=== PATIENT | female | born 1965 | race Caucasian/White ===

== ENCOUNTER 2016-07-01 06:27 | Emergency (ER) | payer OTHER ==
--- NOTE | 2016-07-01 07:39 | C.PDOC ---
History Of Present Illness 51 y/o female presents to the ED with complains of left flank pain radiating to groin since 0100 today with associated nausea and 2 episodes of vomiting. Pt previously diagnosed couple months ago with kidney stones and states symptoms are similar. Pt did not follow up outpatient. Denies fever, chills, abdominal pain, dysuria or any other complaints. Time Seen by Provider: 07/01/16 07:21 Chief Complaint (Nursing): Abdominal Pain History Per: Patient History/Exam Limitations: no limitations Onset/Duration Of Symptoms: Hrs Current Symptoms Are (Timing): Still Present Severity: Moderate Radiation Of Pain To:: Other (groin) Quality Of Discomfort: "Pain" Associated Symptoms: Nausea, Vomiting. denies: Fever, Urinary Symptoms Exacerbating Factors: None Alleviating Factors: None Abnormal Vaginal Bleeding: No Past Medical History Reviewed: Historical Data, Nursing Documentation, Vital Signs Vital Signs: Last Vital Signs Temp 97.6 F 07/01/16 11:06 Pulse 56 L 07/01/16 11:06 Resp 18 07/01/16 11:06 BP 114/71 07/01/16 11:06 Pulse Ox 99 07/01/16 11:06 - Medical History PMH: HTN, Hypercholesterolemia Surgical History: Family History: States: Unknown Family Hx - Social History Hx Tobacco Use: No Hx Alcohol Use: No Hx Substance Use: No - Immunization History Hx Tetanus Toxoid Vaccination: No Hx Influenza Vaccination: No Hx Pneumococcal Vaccination: No Review Of Systems Except As Marked, All Systems Reviewed And Found Negative. Constitutional: Negative for: Fever Gastrointestinal: Positive for: Nausea, Vomiting. Negative for: Abdominal Pain , Diarrhea Genitourinary: Negative for: Dysuria Musculoskeletal: Positive for: Other (left flank pain) Physical Exam - Physical Exam Appears: Non-toxic, In Acute Distress (uncomfortable) Skin: Warm, Dry, No Rash Head: Atraumatic, Normacephalic Neck: Normal, Normal ROM, Supple Chest: Symmetrical Cardiovascular: Rhythm Regular, No Murmur Respiratory: Normal Breath Sounds, No Rales, No Rhonchi, No Wheezing Gastrointestinal/Abdominal: Normal Exam, Soft, No Tenderness Back: Normal Inspection, No CVA Tenderness Extremity: Normal ROM Extremity: Bilateral: Atraumatic Neurological/Psych: Oriented x3, Normal Speech ED Course And Treatment - Laboratory Results Result Diagrams: 07/01/16 08:03 07/01/16 08:03 O2 Sat by Pulse Oximetry: 100 (room air) Pulse Ox Interpretation: Normal - CT Scan/US CT abdomen Other Rad Studies (CT/US): Read By Radiologist, Radiology Report Reviewed CT/US Interpretation: Accession No. : [id number]. Patient Name / ID : MAXIMUS CASTILLO / [id number]. Exam Date : 07/01/2016 08:54:28 ( Approved ). Study Comment : Sex / Age : F / 51Y. Creator : Ben White MD. Dictator : Ben White MD. Bods Developer : Projection Engineer : Ben White MD. Approver2 : Report Date : 07/01/2016 09:31:12. My Comment : . PROCEDURE: CT Abdomen and Pelvis without intravenous contrast. HISTORY: left flank pain. COMPARISON: 04/25/2016. TECHNIQUE: Without contrast.. Contrast Dose: 0. Radiation dose: Total exam DLP = 616.79 mGy-cm. This CT exam was performed using one or more of the following dose reduction techniques: Automated exposure control, adjustment of the mA and/or kV according to patient size, and/ or use of iterative reconstruction technique. FINDINGS: LOWER THORAX: Mild dependent atelectasis in both lower lobes. LIVER: Normal size, contour and attenuation. Multiple low-density masses in right and left hepatic lobe, largest 4.6 cm, possibly cysts. This should be confirmed with ultrasound examination. GALLBLADDER AND BILE DUCTS: Unremarkable. PANCREAS: Unremarkable. No gross lesion or ductal dilatation. SPLEEN: Unremarkable. ADRENALS: Unremarkable. No mass. KIDNEYS AND URETERS: Left hydroureteronephrosis with 4 mm obstructing calculus now identified at left ureterovesical junction. Previously, this calculus was identified in the proximal left ureter. No other renal calculus. No right hydronephrosis. Right upper pole rounded low-attenuation mass, 1.3 cm, measuring -5 Hounsfield units consistent with cyst. No other renal mass. VASCULATURE: Unremarkable. No aortic aneurysm. BOWEL: Mild diverticulosis of descending and sigmoid colon without evidence diverticulitis. No other abnormal bowel loops. No bowel obstruction. APPENDIX: Unremarkable. Normal appendix. PERITONEUM: Unremarkable. No free fluid. No free air. LYMPH NODES: Several mildly enlarged nonspecific left paraaortic lymph nodes, largest 1.7 cm. These are unchanged from prior examination of 04/25/2016. They demonstrate fatty hilum and are of uncertain significance. BLADDER: Unremarkable. REPRODUCTIVE: Normal uterus. BONES: No acute fracture. OTHER FINDINGS: None. IMPRESSION: Obstructing 4 mm left UVJ calculus with mild left hydroureteronephrosis. Several mildly enlarged nonspecific left periaortic lymph nodes, unchanged from 04/25/2016 with fatty hilar architecture. Uncertain significance. Diverticulosis of descending and sigmoid colon without evidence of diverticulitis. Multiple low -density hepatic lesions, possibly cysts. This should be evaluated further with ultrasound examination. Right upper pole cortical mass, likely cyst, 1.3 cm. No other significant abnormality. Progress Note: Patient was tx with IVF, Dilaudid, Zofran, Flomax po. Patient was d/c home with Clinic/Urologist follow up. Medical Decision Making Medical Decision Making: Plan: CT abdomen, labs, UA, IV fluids, zofran, dilaudid Disposition - Disposition Referrals: [facility] [Outside] [facility] [Outside] Disposition: HOME/ ROUTINE Disposition Time: 10:24 Condition: STABLE Additional Instructions: Follow up in Clinic within 1-2 days. Return to ED if feel worse. Prescriptions: Tamsulosin [Flomax] 0.4 mg PO DAILY #10 cap oxyCODONE/Acetaminophen [Percocet 5/325 mg Tab] 1 tab PO QID PRN #20 tab PRN Reason: Pain Ondansetron [Zofran Odt] 1 - 2 tab PO .Q4-6H PRN #20 odt PRN Reason: Nausea/Vomiting Instructions: Renal Colic (ED), How to Strain Your Urine (ED) Print Language: JAPANESE - Clinical Impression Clinical Impression: Renal colic - PA / LOADER / Resident Statement MD/DO has reviewed & agrees with the documentation as recorded. - Scribe Statement The provider has reviewed the documentation as recorded by the Waylon Harrison All medical record entries made by the Scribe were at my direction and personally dictated by me. I have reviewed the chart and agree that the record accurately reflects my personal performance of the history, physical exam, medical decision making, and the department course for this patient. I have also personally directed, reviewed, and agree with the discharge instructions and disposition.
[2016-07-01] MEDS ORDERED: HYDROmorphone 1 mg/ml ISec IVP STA (07:41)
[2016-07-01] MEDS ORDERED: Sodium Chloride 0.9% 1,000 ML IV STA (07:41)
[2016-07-01 08:10] LABS: BASO % 0.2 % (0.0-2.0); EOS # 0.1 K/uL (0.0-0.7); HEMATOCRIT 42.9 % (34.0-47.0); LYMPH # 1.7 K/uL (1.0-4.3); LYMPH % 15.2 % (20.0-40.0); MEAN CELL VOLUME 79.2 fL (81.0-99.0); MEAN CORPUSCULAR HEMOGLOBIN 25.5 pg (27.0-31.0); MEAN CORPUSCULAR HGB CONC 32.3 g/dL (33.0-37.0); MEAN PLATELET VOLUME 8.9 fL (7.2-11.7); MONO # 0.5 K/uL (0.0-0.8); MONO % 4.8 % (0.0-10.0); RED CELL DISTRIBUTION WIDTH 15.9 % (11.5-14.5); WHITE BLOOD COUNT 11.2 K/uL (4.8-10.8)
[2016-07-01] MEDS ORDERED: HYDROmorphone 1 mg/ml ISec ONE (08:21)
[2016-07-01] MEDS ORDERED: Sodium Chloride 0.9% 1,000 ML ONE (08:22)
[2016-07-01 08:24] LABS: CHLORIDE 100 mmol/L (98-107); RBC URINE 1 /hpf (0-3); SODIUM 142 mmol/L (132-148); URINE BILIRUBIN NEGATIVE (NEGATIVE); URINE BLOOD NEGATIVE (NEGATIVE); URINE COLOR Straw (YELLOW); URINE GLUCOSE (UA) NORMAL (Normal); URINE KETONE NEGATIVE (NEGATIVE); URINE LEUKOCYTE ESTERASE NEG Leu/uL (Negative); URINE PROTEIN NEGATIVE (NEGATIVE); URINE UROBILINOGEN NORMAL mg/dL (0.2-1.0); WBC URINE 1 /hpf (0-5)
[2016-07-01 08:25] LABS: POTASSIUM 3.8 mmol/L (3.6-5.2)
[2016-07-01 08:27] LABS: ALB/GLOB RATIO 1.3 (1.0-2.1); ALKALINE PHOSPHATASE 80 U/L (38-126); ALT/SGPT 30 U/L (9-52); AST/SGOT 44 U/L (14-36); BILIRUBIN,TOTAL 0.9 mg/dL (0.2-1.3); BLOOD UREA NITROGEN 14 mg/dL (7-17); CARBON DIOXIDE 25 mmol/L (22-30); GFR AFRICAN-AMERICAN > 60; GLUCOSE,RANDOM 114 mg/dL (65-105); TOTAL PROTEIN 8.9 g/dL (6.3-8.3)
[2016-07-01 08:28] LABS: CALCIUM 9.4 mg/dl (8.6-10.4)
--- NOTE | 2016-07-01 09:32 | CT ---
PROCEDURE: CT Abdomen and Pelvis without intravenous contrast HISTORY: left flank pain COMPARISON: 04/25/2016 TECHNIQUE: Without contrast.. Contrast Dose: 0 Radiation dose: Total exam DLP = 616.79 mGy-cm. This CT exam was performed using one or more of the following dose reduction techniques: Automated exposure control, adjustment of the mA and/or kV according to patient size, and/or use of iterative reconstruction technique. FINDINGS: LOWER THORAX: Mild dependent atelectasis in both lower lobes. LIVER: Normal size, contour and attenuation. Multiple low-density masses in right and left hepatic lobe, largest 4.6 cm, possibly cysts. This should be confirmed with ultrasound examination. GALLBLADDER AND BILE DUCTS: Unremarkable. PANCREAS: Unremarkable. No gross lesion or ductal dilatation. SPLEEN: Unremarkable. ADRENALS: Unremarkable. No mass. KIDNEYS AND URETERS: Left hydroureteronephrosis with 4 mm obstructing calculus now identified at left ureterovesical junction. Previously, this calculus was identified in the proximal left ureter. No other renal calculus. No right hydronephrosis. Right upper pole rounded low-attenuation mass, 1.3 cm, measuring -5 Hounsfield units consistent with cyst. No other renal mass. VASCULATURE: Unremarkable. No aortic aneurysm. BOWEL: Mild diverticulosis of descending and sigmoid colon without evidence diverticulitis. No other abnormal bowel loops. No bowel obstruction. APPENDIX: Unremarkable. Normal appendix. PERITONEUM: Unremarkable. No free fluid. No free air. LYMPH NODES: Several mildly enlarged nonspecific left paraaortic lymph nodes, largest 1.7 cm. These are unchanged from prior examination of 04/25/2016. They demonstrate fatty hilum and are of uncertain significance. BLADDER: Unremarkable. REPRODUCTIVE: Normal uterus BONES: No acute fracture. OTHER FINDINGS: None. IMPRESSION: Obstructing 4 mm left UVJ calculus with mild left hydroureteronephrosis. Several mildly enlarged nonspecific left periaortic lymph nodes, unchanged from 04/25/2016 with fatty hilar architecture. Uncertain significance. Diverticulosis of descending and sigmoid colon without evidence of diverticulitis. Multiple low-density hepatic lesions, possibly cysts. This should be evaluated further with ultrasound examination. Right upper pole cortical mass, likely cyst, 1.3 cm. No other significant abnormality.
[2016-07-01 11:06] VITALS: BP 114/71; PULSE 56; RESP 18; TEMP 97.6
[2016-07-01 14:17] VITALS: O2SAT 100
== END 2016-07-01 11:20 | disposition home or self-care (01) ==
LOC: C.ER 06:27
DX: N13.2 Hydronephrosis with renal and ureteral calculous obstruction (principal)
CPT/HCPCS: 74176; 80053; 81001; 83690; 84703; 85025; 96361; 96374; 96375; 99284; J1170; J2405; J7040

== ENCOUNTER 2017-01-07 19:13 | Emergency (ER) | payer OTHER ==
[2017-01-07 19:36] VITALS: BP 159/88; PULSE 67; RESP 18; TEMP 97.4; O2SAT 99
[2017-01-07] MEDS ORDERED: Lidocaine 2% Inj (20ml) INFIL ONE (20:07)
[2017-01-07] MEDS ORDERED: Tmp-Smz 800 mg-160 mg DS Tab PO STA (20:07)
[2017-01-07] MEDS ORDERED: Lidocaine 2% Inj (20ml) ONE (20:22)
[2017-01-07] MEDS ORDERED: Tmp-Smz 800 mg-160 mg DS Tab ONE (20:23)
--- NOTE | 2017-01-07 21:23 | C.PDOC ---
History Of Present Illness 51 yr old female presents to the ER with complaints of 2-3 day history of a pimple on the chest, progressively worsening. Patient denies drainage from the area, fever or chest pain. Time Seen by Provider: 01/07/17 20:02 Chief Complaint (Nursing): Abnormal Skin Integrity History Per: Patient History/Exam Limitations: no limitations Onset/Duration Of Symptoms: Days (2-3) Past Medical History Reviewed: Historical Data, Nursing Documentation, Vital Signs Vital Signs: Last Vital Signs Temp 97.4 F L 01/07/17 19:32 Pulse 67 01/07/17 19:32 Resp 18 01/07/17 19:32 BP 159/88 H 01/07/17 19:32 Pulse Ox 99 01/07/17 21:42 - Medical History PMH: HTN, Hypercholesterolemia Surgical History: Family History: States: No Known Family Hx - Social History Hx Tobacco Use: No Hx Alcohol Use: No Hx Substance Use: No - Immunization History Hx Tetanus Toxoid Vaccination: No Hx Influenza Vaccination: No Hx Pneumococcal Vaccination: No Review Of Systems Except As Marked, All Systems Reviewed And Found Negative. Constitutional: Negative for: Fever Cardiovascular: Negative for: Chest Pain Skin: Positive for: Other ((+) Pimple on chest.) Physical Exam - Physical Exam Appears: Non-toxic, No Acute Distress Skin: Warm, Dry, No Rash Head: Atraumatic, Normacephalic Oral Mucosa: Moist Chest: Symmetrical, Other ((+) 2.5 cm tender, erythematous and fluctuance abscess to the mid chest.) Respiratory: Normal Breath Sounds, No Rales, No Rhonchi, No Stridor, No Wheezing Neurological/Psych: Oriented x3, Normal Speech, Normal Motor Gait: Steady ED Course And Treatment O2 Sat by Pulse Oximetry: 99 (RA) Pulse Ox Interpretation: Normal - Incision & Drainage Of Abscess Anesthesia: Lidocaine 2% Prep Used: Sterile Water, Betadine Procedure: Incised W/Scalpel Blade#: (11), Drained Pus, Irrigated Cavity W/ Saline, Probed To Break Up Loculations, Packed W/Gauze Medical Decision Making Medical Decision Making: PLAN: * Bactrim PO * Keflex PO * Motrin PO Disposition - Disposition Referrals: [facility] [Outside] Disposition: HOME/ ROUTINE Disposition Time: 21:20 Condition: GOOD Additional Instructions: RETURN TO THE ED IN 2 DAYS FOR PACKING REMOVAL. TAKE ANTIBIOTICS UNTIL COMPLETED. Prescriptions: Cephalexin [Keflex] 500 mg PO BID #14 capsule Ibuprofen [Motrin] 600 mg PO TID #21 tab Sulfamethoxazole/Trimethoprim [Bactrim DS 800 mg-160 mg] 1 tab PO BID #14 tab Instructions: Abscess (GEN) Forms: [email or web address] (Bengali) Print Language: LUXEMBOURGER - Clinical Impression Clinical Impression: Abscess - PA / FORENSIC AUDIT EXPERT / Resident Statement MD/DO has reviewed & agrees with the documentation as recorded. - Scribe Statement The provider has reviewed the documentation as recorded by the Scribe Galilea Yanez All medical record entries made by the Waylon were at my direction and personally dictated by me. I have reviewed the chart and agree that the record accurately reflects my personal performance of the history, physical exam, medical decision making, and the department course for this patient. I have also personally directed, reviewed, and agree with the discharge instructions and disposition.
== END 2017-01-07 21:35 | disposition home or self-care (01) ==
LOC: C.ER 19:13
DX: L02.213 Cutaneous abscess of chest wall (principal)

== ENCOUNTER 2017-01-09 18:33 | Emergency (ER) | payer OTHER ==
[2017-01-09 18:37] VITALS: BP 135/82; PULSE 65; RESP 20; TEMP 98; O2SAT 99
--- NOTE | 2017-01-09 18:59 | C.PDOC ---
History Of Present Illness 51 year old female presents to the ED for a wound check. Patient was evaluated in this ED on 01/07 for a painful abscess to her chest and underwent incision and drainage of the area. Patient states her pain has improved and she has been taking antibiotics and prescribed. Patient denies fever, chills, or drainage from the wound site. Time Seen by Provider: 01/09/17 18:47 Chief Complaint (Nursing): Wound Check History Per: Patient History/Exam Limitations: no limitations Onset/Duration Of Symptoms: Hrs Current Symptoms Are (Timing): Better Location Of Injury: Anterior: Chest Quality Of Symptoms: Painful. denies: Draining Additional History Per: Patient Past Medical History Reviewed: Historical Data, Nursing Documentation, Vital Signs Vital Signs: Last Vital Signs Temp 98 F 01/09/17 18:35 Pulse 65 01/09/17 18:35 Resp 20 01/09/17 18:35 BP 135/82 01/09/17 18:35 Pulse Ox 99 01/09/17 20:28 - Medical History PMH: HTN, Hypercholesterolemia Denies: Chronic Kidney Disease Surgical History: Family History: States: Unknown Family Hx - Social History Hx Tobacco Use: No Hx Alcohol Use: No Hx Substance Use: No - Immunization History Hx Tetanus Toxoid Vaccination: No Hx Influenza Vaccination: No Hx Pneumococcal Vaccination: No Review Of Systems Constitutional: Negative for: Fever, Chills Skin: Positive for: Other (wound check following incision and drainage of abscess. no drainage ) Physical Exam - Physical Exam Appears: Non-toxic, No Acute Distress Skin: Normal Color, Warm, Dry, Other (well-healing abscess to the right upper chest. no active drainage ) Chest: Symmetrical, No Deformity, No Tenderness Neurological/Psych: Oriented x3, Normal Speech, Normal Cognition ED Course And Treatment O2 Sat by Pulse Oximetry: 99 (on RA) Pulse Ox Interpretation: Normal Medical Decision Making Medical Decision Making: Progress: Packing intact to right upper chest. Packing removed. Wound is well-healing with no signs drainage. Wound dressed with dry, sterile dressing. Patient tolerated well with no complications. Disposition Counseled Patient/Family Regarding: Diagnosis, Need For Followup - Disposition Disposition: HOME/ ROUTINE Disposition Time: 18:58 Condition: STABLE Additional Instructions: Mantenga el dustin limpia y seca. Puede lavarse suavemente con agua y jabn. Puede aplicar ungento antibitico. Contina y termina con los antibiticos. Cambiar el aderezo diariamente Instructions: Acute Wound Care (ED) Forms: [employer] (Kyrgyz) Print Language: OCCITAN - POA Present On Arrival: None - Clinical Impression Clinical Impression: Abscess packing removal - PA / SENIOR INFORMATION SYSTEMS ARCHITECT / Resident Statement MD/DO has reviewed & agrees with the documentation as recorded. - Scribe Statement The provider has reviewed the documentation as recorded by the Scribe (Ginna Lu) All medical record entries made by the Scribe were at my direction and personally dictated by me. I have reviewed the chart and agree that the record accurately reflects my personal performance of the history, physical exam, medical decision making, and the department course for this patient. I have also personally directed, reviewed, and agree with the discharge instructions and disposition.
== END 2017-01-09 19:08 | disposition home or self-care (01) ==
LOC: C.ER 18:33
DX: Z48.00 Encounter for change or removal of nonsurgical wound dressing (principal); E78.00 Pure hypercholesterolemia, unspecified; I10 Essential (primary) hypertension

== ENCOUNTER 2017-06-14 17:18 | Emergency (ER) | payer OTHER ==
[2017-06-14 17:22] VITALS: BP 155/88; PULSE 76; RESP 18; TEMP 97.7; O2SAT 100
--- NOTE | 2017-06-14 17:41 | C.PDOC ---
History Of Present Illness 52 year old female presents to the emergency department for a suture removal. Patient states that she sustained a laceration two weeks ago while she was visiting the [facility], located behind her left ear. Patient denies fevers, chills, vomiting, nausea, and headache. Time Seen by Provider: 06/14/17 17:26 Chief Complaint (Nursing): Suture/Staple Removal History Per: Patient History/Exam Limitations: no limitations Onset/Duration Of Symptoms: Days Ago (2 weeks ago) Location Of Injury: Left: Head Recent travel outside of the [place]: Yes ([place]) Past Medical History Reviewed: Historical Data, Nursing Documentation, Vital Signs Vital Signs: Last Vital Signs Temp 97.7 F 06/14/17 17:20 Pulse 76 06/14/17 17:20 Resp 18 06/14/17 17:20 BP 155/88 H 06/14/17 17:20 Pulse Ox 100 06/14/17 17:41 - Medical History PMH: HTN, Hypercholesterolemia Denies: Chronic Kidney Disease Surgical History: Family History: States: No Known Family Hx - Social History Hx Tobacco Use: No Hx Alcohol Use: No Hx Substance Use: No - Immunization History Hx Tetanus Toxoid Vaccination: No Hx Influenza Vaccination: No Hx Pneumococcal Vaccination: No Review Of Systems Constitutional: Negative for: Fever, Chills Gastrointestinal: Negative for: Nausea, Vomiting, Diarrhea Neurological: Negative for: Headache Physical Exam - Physical Exam Skin: Other (well-healed (scabbed over) laceration in between the fold of skull and left earlobe. ) ED Course And Treatment O2 Sat by Pulse Oximetry: 100 (RA) Pulse Ox Interpretation: Normal Medical Decision Making Medical Decision Making: Patients laceration was cleaned with Betadine and saline. Was removed using an 11 blade. Disposition Counseled Patient/Family Regarding: Diagnosis - Disposition Disposition: HOME/ ROUTINE Disposition Time: 17:40 Condition: STABLE Instructions: Stitches Removal Forms: Gen Discharge Inst Maori, [facility] (Maori) - POA Present On Arrival: None - Clinical Impression Clinical Impression: Removal of suture - Scribe Statement The provider has reviewed the documentation as recorded by the Scribe (Marvin Sanchez) Provider Attestation: All medical record entries made by the Scribe were at my direction and personally dictated by me. I have reviewed the chart and agree that the record accurately reflects my personal performance of the history, physical exam, medical decision making, and the department course for this patient. I have also personally directed, reviewed, and agree with the discharge instructions and disposition.
== END 2017-06-14 18:29 | disposition home or self-care (01) ==
LOC: C.ER 17:18
DX: Z48.02 Encounter for removal of sutures (principal); I10 Essential (primary) hypertension; E78.00 Pure hypercholesterolemia, unspecified

== ENCOUNTER 2017-11-30 17:53 | Emergency (ER) | payer SELFPAY ==
[2017-11-30 18:16] VITALS: BMI 27.4
[2017-11-30 18:19] VITALS: BP 151/87; RESP 18; TEMP 99; O2SAT 99
[2017-11-30] MEDS ORDERED: Tmp-Smz 800 mg-160 mg DS Tab PO STA (18:30)
[2017-11-30] MEDS ORDERED: Naproxen 550 mg Tab PO STA (18:31)
--- NOTE | 2017-11-30 18:33 | C.PDOC ---
History Of Present Illness 52 year old female presents to the ED complaining of abscess to the right buttock for 5 days. Describes discomfort as painful. Reports she popped the abscess and noticed more postules surrounding the area. Denies history of diabetes. Denies fever, chills. Time Seen by Provider: 11/30/17 18:23 Chief Complaint (Nursing): Abnormal Skin Integrity History Per: Patient History/Exam Limitations: no limitations Onset/Duration Of Symptoms: Days Current Symptoms Are (Timing): Still Present Location Of Injury: Right: Buttock (abscess ) Quality Of Symptoms: Painful Past Medical History Reviewed: Historical Data, Nursing Documentation, Vital Signs Vital Signs: Last Vital Signs Temp 99.0 F 11/30/17 18:17 Pulse 81 11/30/17 18:17 Resp 18 11/30/17 18:17 BP 151/87 H 11/30/17 18:17 Pulse Ox 99 11/30/17 18:17 - Medical History PMH: HTN, Hypercholesterolemia Denies: Chronic Kidney Disease Surgical History: Family History: States: No Known Family Hx - Social History Hx Tobacco Use: No Hx Alcohol Use: No Hx Substance Use: No - Immunization History Hx Tetanus Toxoid Vaccination: No Hx Influenza Vaccination: No Hx Pneumococcal Vaccination: No Review Of Systems Constitutional: Negative for: Fever, Chills Skin: Positive for: Other (abscess to right buttock ) Physical Exam - Physical Exam Appears: Non-toxic, Other (mildly uncomfortable ) Skin: Warm, Dry Head: Normacephalic Eye(s): bilateral: Normal Inspection Neck: Normal ROM Chest: Symmetrical Cardiovascular: Rhythm Regular Respiratory: Normal Breath Sounds, No Rales, No Rhonchi, No Wheezing Gastrointestinal/Abdominal: Soft, No Tenderness Rectal: Other (indurated postule surrounded by smaller postules to the inferior aspect of right buttock. (+)erythema (-)fluctuance) Extremity: Normal ROM Neurological/Psych: Oriented x3, Normal Speech Gait: Steady ED Course And Treatment O2 Sat by Pulse Oximetry: 99 (RA) Pulse Ox Interpretation: Normal Progress Note: Patient treated with Keflex, Naproxen, and Bactrim. Disposition - Disposition Disposition: HOME/ ROUTINE Disposition Time: 18:45 Condition: STABLE Additional Instructions: FOLLOW UP WITH YOUR DOCTOR IN 1-2 DAYS USE MEDICATIONS DIRECTED APPLY WARM TOWELS TO AREA SEVERAL TIMES DAILY RETURN TO ER IF SYMPTOMS WORSEN ОЛЕГ ERAZO CANTU MDICO EN 1-2 WEBB UTILICE MEDICAMENTOS JORGE SE DIRIGE APLICAR LAS TOALLAS CALIENTES AL REECE VARIAS VECES DIARIAS REGRESAR A ER SI LOS SNTOMAS SE INTENTAN Prescriptions: Cephalexin [Keflex] 500 mg PO BID #14 capsule Naproxen 375 mg PO BID PRN #20 tablet PRN Reason: pain Sulfamethoxazole/Trimethoprim [Bactrim DS 800 mg-160 mg] 1 tab PO BID #14 tab Instructions: Boil (DC), Cellulitis (Skin Infection), Adult (DC) Forms: [employer] (Telugu) Print Language: TONGAN - POA Present On Arrival: None - Clinical Impression Clinical Impression: Cellulitis of buttock, right, Skin pustule, Abrasion of buttock - Scribe Statement The provider has reviewed the documentation as recorded by the Waylon Navarrete All medical record entries made by the Waylon were at my direction and personally dictated by me. I have reviewed the chart and agree that the record accurately reflects my personal performance of the history, physical exam, medical decision making, and the department course for this patient. I have also personally directed, reviewed, and agree with the discharge instructions and disposition.
[2017-11-30] MEDS ORDERED: Naproxen 550 mg Tab PO ONE (19:08)
[2017-11-30] MEDS ORDERED: Tmp-Smz 800 mg-160 mg DS Tab ONE (19:08)
[2017-11-30 19:11] VITALS: PULSE 16
== END 2017-11-30 19:10 | disposition home or self-care (01) ==
LOC: C.ER 17:53
DX: S30.810A Abrasion of lower back and pelvis, initial encounter (principal); L03.317 Cellulitis of buttock; X58.XXXA Exposure to other specified factors, initial encounter; Y92.9 Unspecified place or not applicable

== ENCOUNTER 2017-12-26 21:45 | Emergency (ER) | payer OTHER ==
[2017-12-26 21:46] VITALS: BMI 27.4
[2017-12-26 21:55] VITALS: RESP 20
--- NOTE | 2017-12-26 21:58 | C.PDOC ---
History Of Present Illness 52 yr old female w/ hx ot TIA (no blood thinner usage), HLD p/w Left ankle swelling and pain which began 3 days ago, first time occurence. No fever, chills or night sweats or redness to LLE. No trauma or fall. Pt denies any history of gout- but notes that she normally eats alot of red meat. No redness or bubbles per pt to RLE. No abdominal pain, constipation, dark or bloody stool. No chest pain shortness of breath or any other complaints. Time Seen by Provider: 12/26/17 21:47 Chief Complaint (Nursing): Lower Extremity Problem/Injury Past Medical History Vital Signs: Last Vital Signs Temp 98.0 F 12/26/17 21:53 Pulse 65 12/26/17 21:53 Resp 20 12/26/17 21:53 BP 162/91 H 12/26/17 21:53 Pulse Ox 100 12/26/17 21:53 - Medical History PMH: HTN, Hypercholesterolemia Denies: Chronic Kidney Disease Surgical History: Family History: States: Unknown Family Hx - Social History Hx Tobacco Use: No Hx Alcohol Use: No Hx Substance Use: No - Immunization History Hx Tetanus Toxoid Vaccination: No Hx Influenza Vaccination: No Hx Pneumococcal Vaccination: No Review Of Systems Constitutional: Negative for: Fever, Chills, Sweats Eyes: Negative for: Pain, Vision Change ENT: Negative for: Ear Pain, Ear Discharge, Nose Pain Cardiovascular: Negative for: Chest Pain, Palpitations, Orthopnea Respiratory: Negative for: Cough, Shortness of Breath, SOB with Excertion Gastrointestinal: Negative for: Nausea, Vomiting, Abdominal Pain, Constipation, Melena, Hematochezia Genitourinary: Negative for: Dysuria, Frequency, Incontinence, Hematuria, Vaginal Discharge Musculoskeletal: Positive for: Other (L ankle pain and swelling). Negative for: Neck Pain Skin: Negative for: Rash, Lesions Neurological: Negative for: Weakness, Numbness Psych: Negative for: Anxiety Physical Exam - Physical Exam Appears: Non-toxic, No Acute Distress Skin: Normal Color, Warm, Dry, Other (L ankle warm to touch) Head: Atraumatic, Normacephalic Eye(s): bilateral: Normal Inspection, PERRL, EOMI Nose: Normal Tongue: Normal Appearing Lips: Normal Appearing Neck: Normal, Normal ROM, Supple Chest: No Deformity Cardiovascular: Rhythm Regular Respiratory: Normal Breath Sounds, No Decreased Breath Sounds, No Rales, No Rhonchi Gastrointestinal/Abdominal: Normal Exam, Soft, No Tenderness, No Organomegaly, No Mass, No Distention, No Guarding Back: Normal Inspection, No CVA Tenderness Extremity: Swelling (L ankle), Other (L ankle swelling, TTP, good n/v status, No erythema or tenderness ) Extremity: Left: Normal ROM, Painful To Bear Weight, Right: Normal Color And Temperature (LLE warm to touch, TTP), Normal ROM, Bilateral: Atraumatic Pulses: Left Dorsalis Pedis: Normal, Right Dorsalis Pedis: Normal Neurological/Psych: Oriented x3, Normal Speech, Normal Cognition ED Course And Treatment - Laboratory Results Result Diagrams: 12/26/17 22:15 12/26/17 22:15 O2 Sat by Pulse Oximetry: 100 Medical Decision Making Medical Decision Makin yr old female w/ hx of TIA and HLD (no current meds) p/w L ankle swelling and redness that started x3 ago. No overlying redness or trauma. No crepitus. Likely gout given appearance, but given no hx will seek xray, labs and tap. 1050 crp elevated no WBC- pending ESR pain improved paged podiatry resident: to see pt. [id number] Podiatry resident bedside to L ankle tap 1144 Consent done w. RN and Podiatry bedside. Pt consented verbally and written and recited risks associated with procedure Tap done, no complications noted. Good n/v status post procedure Per podiatry resident: we are to have pt f/u outpt in podiatry clinic, to prescribe 500 keflex bid x7d, they will watch for cultures, low likelyhood of septic joint given afebrile without wbc. clear for d/c home. Disposition - Disposition Disposition Time: 23:47 Condition: GOOD Forms: [facility] (Yakut) - Clinical Impression Clinical Impression: Ankle pain, left
[2017-12-26 22:27] LABS: BASO % 0.6 % (0.0-2.0); EOS # 0.1 K/uL (0.0-0.7); EOS % 0.9 % (0.0-4.0); HEMOGLOBIN 12.8 g/dL (11.0-16.0); LYMPH # 2.1 K/uL (1.0-4.3); LYMPH % 26.9 % (20.0-40.0); MEAN CELL VOLUME 80.8 fL (81.0-99.0); MEAN CORPUSCULAR HEMOGLOBIN 27.1 pg (27.0-31.0); MEAN CORPUSCULAR HGB CONC 33.5 g/dL (33.0-37.0); MEAN PLATELET VOLUME 8.5 fL (7.2-11.7); MONO # 0.5 K/uL (0.0-0.8); MONO % 6.5 % (0.0-10.0); NEUT # 5.2 K/uL (1.8-7.0); NEUT % 65.1 % (50.0-75.0); RBC 4.73 Mil/uL (3.80-5.20)
[2017-12-26 22:36] LABS: ALB/GLOB RATIO 1.5 (1.0-2.1); ALBUMIN 4.8 g/dL (3.5-5.0); ALT/SGPT 22 U/L (9-52); AST/SGOT 23 U/L (14-36); BLOOD UREA NITROGEN 14 mg/dL (7-17); CALCIUM 9.9 mg/dl (8.6-10.4); GFR NON-AFRICAN AMERICAN > 60
[2017-12-26 23:20] VITALS: BP 122/76; PULSE 63; TEMP 98.2
[2017-12-26 23:22] VITALS: O2SAT 100
[2017-12-26] MEDS ORDERED: Lidocaine Hydrochloride 0 ML INJ ONE (23:26)
[2017-12-26] MEDS ORDERED: Lidocaine Hydrochloride 10 ML INJ ONE (23:27)
--- NOTE | 2017-12-27 09:56 | RAD ---
Date of service: 12/26/2017 PROCEDURE: Left Foot Radiographs. HISTORY: L foot pain COMPARISON: None. FINDINGS: No acute fracture or destructive bony lesion identified. JOINTS: Normal. SOFT TISSUES: Normal. OTHER FINDINGS: None. IMPRESSION: Unremarkable left foot radiographs.
--- NOTE | 2017-12-27 10:20 | RAD ---
Date of service: 12/26/2017 PROCEDURE: Left Ankle Radiographs. HISTORY: L foot pain COMPARISON: None available. FINDINGS: BONES: No acute fracture or destructive bony lesion identified. JOINTS: Normal. No osteoarthritis. Ankle mortise maintained. Talar dome intact SOFT TISSUES: Soft tissue edema surrounds the left ankle diffusely but primarily at the lateral and anterior soft tissues. OTHER FINDINGS: None. IMPRESSION: Soft tissue edema. No fracture or dislocation identified.
--- NOTE | 2017-12-27 15:19 | CP.PCM.CON ---
History of Present Illness - History of Present Illness History of Present Illness: Podiatry Consult Note - Dr. Patrick 52 y/o female with PMHx of TIA, HLD seen in ED after complaints of left ankle redness and swelling. She states it has been like this for 3 days and has gotten progressively worse. Admits it is painful to walk or bear weight. Denies any traumatic events. Denies history of DM. Denies F/C/N/V/CP/SOB. Denies any breaks in the skin or recent wounds. Denies recent international travel. PSHx: All: NKDA SocHx: social alcohol; denies cigarette or drug use Review of Systems - Review of Systems All systems: reviewed and no additional remarkable complaints except (per HPI) Past Patient History - Infectious Disease Hx of Infectious Diseases: None - Past Medical History & Family History Past Medical History?: Yes - Past Social History Smoking Status: Never Smoked - CARDIAC Hx Hypercholesterolemia: Yes Hx Hypertension: Yes - PULMONARY Hx Respiratory Disorders: No - NEUROLOGICAL Hx Neurological Disorder: No - HEENT Hx HEENT Problems: No - RENAL Hx Chronic Kidney Disease: No - ENDOCRINE/METABOLIC Hx Endocrine Disorders: No - HEMATOLOGICAL/ONCOLOGICAL Hx Blood Disorders: No - INTEGUMENTARY Hx Dermatological Problems: No - MUSCULOSKELETAL/RHEUMATOLOGICAL Hx Musculoskeletal Disorders: No Hx Falls: No - GASTROINTESTINAL Hx Gastrointestinal Disorders: No - GENITOURINARY/GYNECOLOGICAL Hx Genitourinary Disorders: No - PSYCHIATRIC Hx Substance Use: No - SURGICAL HISTORY Hx Surgeries: Yes Hx Section: Yes (x2) Hx Tubal Ligation: Yes Other/Comment: fibrocystic breast. I&D - chest - ANESTHESIA Hx Anesthesia: Yes Hx Anesthesia Reactions: No Hx Malignant Hyperthermia: No Meds Home Medications: Home Medication List Medication Instructions Recorded Confirmed Type Cephalexin [Keflex] 500 mg PO Q6H 7 Days #28 capsule 12/26/17 Rx Allergies/Adverse Reactions: Allergies Allergy/AdvReac Type Severity Reaction Status Date / Time No Known Allergies Allergy Verified 12/26/17 21:53 Physical Exam - Constitutional Appears: Well, Non-toxic, No Acute Distress - Extremities Exam Additional comments: Left lower extremity focused: Vasc: DP/PT pulses palpable 2/4. Temperature gradient warm to warm. CFT < 3 sec to all digits. Localized perimalleolar edema Derm: Diffuse erythema surrounding entirety of ankle joint. No open lesions/no breaks in skin or soft tissue. No fluctuance or evidence of abscess formation is noted. Neuro: Protective sensation grossly intact Ortho: Moderate tenderness to passive mobilization of ankle joint or palpation of lateral and anterior ankle. - Neurological Exam Neurological exam: Alert, Oriented x3 - Psychiatric Exam Psychiatric exam: Normal Affect, Normal Mood Results - Vital Signs Recent Vital Signs: Last Vital Signs Temp 98.2 F 12/26/17 23:20 Pulse 63 12/26/17 23:20 Resp 20 12/26/17 23:20 BP 122/76 12/26/17 23:20 Pulse Ox 100 12/26/17 23:50 - Labs Result Diagrams: 12/26/17 22:15 12/26/17 22:15 Labs: Laboratory Results - last 24 hr 12/26/17 12/26/17 22:15 22:15 WBC 8.0 RBC 4.73 Hgb 12.8 Hct 38.2 MCV 80.8 L MCH 27.1 MCHC 33.5 RDW 14.0 Plt Count 256 MPV 8.5 Neut % (Auto) 65.1 Lymph % (Auto) 26.9 [place] % (Auto) 6.5 Eos % (Auto) 0.9 Baso % (Auto) 0.6 Neut # (Auto) 5.2 Lymph # (Auto) 2.1 [place] # (Auto) 0.5 Eos # (Auto) 0.1 Baso # (Auto) 0.0 ESR 14 Sodium 140 Potassium 3.4 L Chloride 104 Carbon Dioxide 23 Anion Gap 16 BUN 14 Creatinine 0.7 Est GFR ( Amer) > 60 Est GFR (Non-Af Amer) > 60 Random Glucose 107 H Calcium 9.9 Total Bilirubin 0.7 AST 23 ALT 22 Alkaline Phosphatase 106 C-Reactive Protein 17.00 H Total Protein 8.0 Albumin 4.8 Globulin 3.3 Albumin/Globulin Ratio 1.5 Assessment & Plan - Assessment and Plan (Free Text) Assessment: 52 y/o female with red hot swollen left ankle joint, likely secondary to gout Plan Pt seen and evaluated, discussed with Dr. Patrick Pt is afebrile, no leukocytosis noted All risks, benefits, complications and alternatives explained to pt Pt expressed understanding and gave written and verbal consent to ankle arthrocentesis Procedure site prepped with chloraprep and betadine solutions 10cc of 1% Lidocaine plain injected into anterolateral left ankle extending towards but not directly into ankle joint 19 gauge needle utilized to aspirate ankle joint fluid - sent for fluid analysis Dry bandage applied to left ankle Pt advised to monitor the site for signs of infection such as increased redness, swelling, drainage, as well as symptoms such as fever, chills, nausea or vomiting Pt to follow up in [facility] with Dr. Patrick to f/u with results of fluid analysis from ankle joint Thank you for this consult
== END 2017-12-27 00:01 | disposition home or self-care (01) ==
LOC: C.ER 21:45
DX: M79.89 Other specified soft tissue disorders (principal)